=== PATIENT | male | born 1985 | race Caucasian/White ===

== ENCOUNTER 2019-08-26 11:54 | Emergency (ER) | payer OTHER, SELFPAY ==
[2019-08-26 11:53] VITALS: BP 137/105; PULSE 85; RESP 20; TEMP 36.7; O2SAT 96
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
[2019-08-26 14:05] VITALS: BP 130/66; PULSE 67; RESP 20; O2SAT 98
== END 2019-08-26 14:07 ==
PROVIDERS: Emergency Provider Emergency Medicine
DX: F41.9 Anxiety disorder, unspecified (principal); F17.200 Nicotine dependence, unspecified, uncomplicated
CPT/HCPCS: 99281